=== PATIENT | female | born 1970 | race Two or more races ===

== ENCOUNTER 2019-08-29 13:18 | Inpatient (IN) | payer OTHER ==
[~2019-08-29] VITALS: Ht 167.6 cm; Wt 95.7 kg
[2019-09-13] MEDS ORDERED: ZYRTEC10 M3 PO (13:45)
[2019-09-13] MEDS ORDERED: COZAAR100 MG PO (13:45)
== END 2019-09-22 13:12 | disposition home or self-care (01) | DRG 330 ==
LOC: SURG 09-20 05:33 → O/R 09-20 05:33 → SURG 09-20 10:30
PROVIDERS: ADMIT Colon & Rectal Surgery
PROC: 0DJD8ZZ Inspection of Lower Intestinal Tract, Via Natural or Artificial Opening Endoscopic (ICD-10-PCS; 2019-09-20)
PROC: 4A12X4Z Monitoring of Cardiac Electrical Activity, External Approach (ICD-10-PCS; 2019-09-20)
PROC: 4A033R1 Measurement of Arterial Saturation, Peripheral, Percutaneous Approach (ICD-10-PCS; 2019-09-20)
PROC: 0DTN4ZZ Resection of Sigmoid Colon, Percutaneous Endoscopic Approach (ICD-10-PCS; principal; 2019-09-20 10:30)
DX: K57.32 Diverticulitis of large intestine without perforation or abscess without bleeding (principal); K92.1 Melena; I11.9 Hypertensive heart disease without heart failure; G47.33 Obstructive sleep apnea (adult) (pediatric); E66.09 Other obesity due to excess calories; E80.4 Gilbert syndrome